=== PATIENT | female | born 1985 | race Caucasian/White ===

== ENCOUNTER 2018-03-16 01:07 | Emergency (ER) | payer OTHER ==
[2018-03-16 01:16] VITALS: BMI 25.9
[2018-03-16 01:43] VITALS: BP 107/61; PULSE 78; TEMP 98.8
--- NOTE | 2018-03-16 02:27 | PDOC ---
History of Present Illness - General Chief Complaint: Pain, Acute Stated Complaint: PAIN/NUMBNESS, LT ARM/RASH Time Seen by Provider: 03/16/18 02:13 History Source: Patient - History of Present Illness Initial Comments: 03/16/18 04:09 32 year old female with a PMH of Sickle Cell Disease presents to our ED c/o 1 day h/o L sided chest and shoulder pain that radiates down her right arm. Patient states the pain is constant, throbbing and similar to her previous sickle cell pain. Endorses some associated shortness of breath but no cough. Denies fever/chills, lightheadedness, palpitations. Notes she can't find her Percocet which she normally takes PRN for sickle cell pain. States her last epside of sickle cell pain was more than 6 months previous. Patient additionally c/o B/L hand rash and rash on her R foot. Notes she recently used a new set of cooking gloves.Notes associated puritus and some discharge from one area of R hand rash. NKDA Surgical: cholecystectomy, appendicitis, unilateral ovarian removal Social: denies toxic habits PMD: Dr. Rakesh Reddy Cable Supervisor: Prakash As per EMR, patient was last evaluated and hospitalized at our institution in 2014 for asthma exacerbation and hypoxia. Past History - Past Medical History Allergies/Adverse Reactions: Allergies Allergy/AdvReac Type Severity Reaction Status Date / Time No Known Allergies Allergy Verified 03/16/18 01:14 Home Medications: Ambulatory Orders Albuterol 0.083% Nebulizer Kourtney [Ventolin 0.083% Nebulizer Soln -] 1 neb NEB Q4H 12/01/14 Mirtazapine [Remeron -] 15 mg PO DAILY 12/01/14 Albuterol Sulfate Inhaler - [Ventolin HFA Inhaler -] 2 inh PO Q4H PRN #1 inh Guaifenesin [Robitussin -] 10 ml PO Q6H PRN #1 bottle 12/05/14 predniSONE [Deltasone -] 20 mg PO DAILY #5 tablet 12/05/14 Amox-Tr/K Cl [Augmentin - 875Mg Tablet] 1 tab PO BID #6 tablet 03/16/18 Asthma: Yes COPD: No Psychiatric Problems: Yes (depression) Other medical history: sickle cell - Surgical History Appendectomy: Yes Cholecystectomy: Yes - Suicide/Smoking/Psychosocial Hx Smoking History: Current every day smoker Have you smoked in the past 12 months: Yes Number of Cigarettes Smoked Daily: 8 Information on smoking cessation initiated: No 'Breaking Loose' booklet given: 12/02/14 Hx Alcohol Use: No Drug/Substance Use Hx: No Substance Use Type: None Hx Substance Use Treatment: No Review of Systems - Review of Systems Constitutional: No: Chills, Fever Respiratory: Yes: Shortness of Breath. No: Cough Cardiac (ROS): Yes: Chest Pain. No: Lightheadedness, Palpitations, Syncope ABD/GI: No: Constipated, Diarrhea, Nausea, Vomiting *Physical Exam - Vital Signs Last Vital Signs Temp Pulse Resp BP Pulse Ox 98.8 F 78 18 107/61 98 03/16/18 01:42 03/16/18 01:42 03/16/18 01:42 03/16/18 01:42 03/16/18 01:42 - Physical Exam General Appearance: Yes: Nourished, Appropriately Dressed Neck: positive: Trachea midline, Supple Respiratory/Chest: positive: Lungs Clear Cardiovascular: positive: S1, S2, Murmur Gastrointestinal/Abdominal: positive: Soft. negative: Distended, Guarding, Rebound, Tenderness Extremity: positive: Normal Capillary Refill, Other (B/L hand rash, rash on R pedal surface with pinpoint excoriations. NVI, mild edema. ) Integumentary: positive: Normal Color, Dry, Warm Neurologic: positive: Fully Oriented, Alert ED Treatment Course - LABORATORY CBC & Chemistry Diagram: 03/16/18 02:44 03/16/18 02:44 Medical Decision Making - Medical Decision Making 03/16/18 04:12 32 year old female with chest and arm pain. Afebrile, SpO2 96-98% on room air. Notes she cannot locate her pain medication. Frontal diagnosis: SCD crisis, PNA, muskoskeletal pain, acute chest syndrome (less likely no fever, no hypoxia) . Will obtain CXR, basic labs, Troponin, ECG. Pain control with Percocet. Will check ISTOP for opioid medications. Blood cultures + Wound culture of hand rash - possible insect bite vs. allergic reaction w/infection 2/2 to skin breakage 2/2 to puritus. 03/16/18 06:31 WBC 22, with neutrophilic predominance consistent with SCD. Troponin (-). Symptomatically improved with Percocet. CXR shows L sided infiltrate (no on prior XR). Will presumptively treat for pneumonia and discharge home with strict return precautions. Patient given referral to dermatology for evaluation of rash. I discussed the physical exam findings, ancillary test results and final diagnoses with the patient. I answered all of the patient's questions. The patient was satisfied with the care received and felt comfortable with the discharge plan and treatment plan. The patient will return to the Emergency Department with any new, persistent or worsening symptoms. *DC/Admit/Observation/Transfer Diagnosis at time of Disposition: Pneumonia - Discharge Dispostion Disposition: HOME Condition at time of disposition: Good Decision to Admit order: No - Prescriptions Prescriptions: Amox-Tr/K Cl [Augmentin - 875Mg Tablet] 1 tab PO BID #6 tablet - Referrals Referrals: Rakesh Reddy MD [Primary Care Provider] - Sienna Castellano [Staff Physician] - - Patient Instructions Additional Instructions: An antibiotic has been called to your pharmacy, please complete the entire antibiotic course. Follow up with Dr. Reddy in the next 2-3 days. A referral to a pyroglazer has been provided to you. Please make an appointment for evaluation of your rash. You can call the hospital at the number provided in 72 hours for results of the wound culture taken from your hand. Return to the Emergency Department for worsening pain, shortness of breath, or any new/worsening/concerning symptoms. - Post Discharge Activity
--- NOTE | 2018-03-16 02:39 | PDOC ---
Attending Attestation - HPI HPI: 03/16/18 03:02 The patient is a 32 year old female, with a significant past medical history of asthma and sickle cell disease, who presents to the emergency department with, left shoulder pain radiating down the left arm. She reports her pain to be similar to her baseline pain exacerbated to her left arm. She reports an associated rash on her bilateral arms and right foot for the past 2 days. She reports using new gloves when cooking just prior to the onset of her symptoms. Allergies: NKA - Physicial Exam PE: 03/16/18 03:02 GENERAL: Well-appearing, well-nourished. No apparent distress. HEENT: Normocephalic, atraumatic. PERRL, EOM intact. CARDIOVASCULAR: Normal S1, S2. Regular rate and rhythm. PULMONARY: Clear to auscultation bilaterally. ABDOMEN: Soft, non-distended, non-tender. EXTREMITIES: Normal ROM in all four extremities. No gross deformities. +SKIN: Skin breakdown to the palmar aspect of the bilateral hands on and close to the digits. Similar rash to the dorsum of the right foot. NEUROLOGICAL: No focal neurological deficits. <Christi Dewitt - Last Filed: 03/16/18 03:02> - Resident Resident Name: Rosario Madison - ED Attending Attestation I have performed the following: I have examined & evaluated the patient, The case was reviewed & discussed with the resident, I agree w/resident's findings & plan, Exceptions are as noted - Medical Decision Making 03/16/18 19:29 patient was treated and released <Joe Haynes - Last Filed: 03/16/18 19:30> Attestations - Attestations 03/16/18 03:04 Documentation prepared by Christi Dewitt, acting as medical device sales consultant for Joe Haynes DO. <Christi Dewitt - Last Filed: 03/16/18 03:02>
[2018-03-16 04:16] LABS: BASO % 0.8 % (0-2.0); EOS % 6.3 % (0-4.5); HEMATOCRIT 35.8 % (32.4-45.2); HEMOGLOBIN 12.3 GM/dL (10.7-15.3); MCH 27.3 pg (25.7-33.7); MCHC 34.5 g/dl (32.0-36.0); MEAN CELL VOLUME 79.2 fl (80-96); MEAN PLT VOLUME 7.4 fl (7.5-11.1); MONO % 6.6 % (3.8-10.2); NEUT % 59.3 % (42.8-82.8); PLATELET COUNT 573 K/MM3 (134-434); RBC 4.52 M/mm3 (3.60-5.2); RDW 14.5 % (11.6-15.6)
[2018-03-16 04:26] LABS: ALBUMIN 3.9 g/dl (3.4-5.0); ALK PHOS 81 U/L (45-117); ANION GAP 11 (8-16); BILIRUBIN,TOTAL 0.7 mg/dL (0.2-1.0); BLOOD UREA NITROGEN 12 mg/dL (7-18); CALCIUM 8.4 mg/dL (8.5-10.1); CHLORIDE 108 mmol/L (98-107); CO2 24 mmol/L (21-32); CREATININE 0.5 mg/dL (0.55-1.02); GLUCOSE,RANDOM 98 mg/dL (74-106); SGPT/ALT 26 U/L (12-78); SODIUM 143 mmol/L (136-145); TOT PROT 7.1 g/dl (6.4-8.2)
[2018-03-16 04:34] LABS: POTASSIUM 4.1 mmol/L (3.5-5.1); SGOT/AST 33 U/L (15-37)
[2018-03-16 06:24] LABS: ANISOCYTOSIS 1+; PLATELET ESTIMATE INCREASED
[2018-03-16] MEDS ORDERED: morphine CARPU-JECT 2 MG/1 ML DISP.SYRIN IVPUSH ONE (06:28)
[2018-03-16] MEDS ORDERED: AMOX TR/POT CLAV 500MG/125MG TABLETS (FP) PO ONE (06:30)
[2018-03-16] MEDS ORDERED: AMOX TR/POT CLAV 875MG/125MG TABLETS (FP) PO STA (06:31)
[2018-03-16] MEDS ORDERED: AMOX TR/POT CLAV 875MG/125MG TABLETS (FP) ONE (06:56)
--- NOTE | 2018-03-16 15:35 | EKG ---
Test Reason : Blood Pressure : / mmHG Vent. Rate : 082 BPM Atrial Rate : 082 BPM P-R Int : 130 ms QRS Dur : 100 ms QT Int : 410 ms P-R-T Axes : 057 057 012 degrees QTc Int : 479 ms NORMAL SINUS RHYTHM INCOMPLETE RIGHT BUNDLE BRANCH BLOCK BORDERLINE ECG WHEN COMPARED WITH ECG OF 03-DEC-2014 11:52, T WAVE INVERSION NO LONGER EVIDENT IN ANTERIOR LEADS Confirmed by JASEN SÁNCHEZ, WYATT ([id number]) on 03/16/2018 3:35:33 PM Referred By: Confirmed By:WYATT AGGARWAL MD
== END 2018-03-16 06:59 | disposition home or self-care (01) ==
LOC: JER 01:07
DX: J18.9 Pneumonia, unspecified organism (principal); F17.210 Nicotine dependence, cigarettes, uncomplicated; J45.909 Unspecified asthma, uncomplicated; F32.9 Major depressive disorder, single episode, unspecified; D57.1 Sickle-cell disease without crisis
CPT/HCPCS: 36415; 71045-TC-FY; 80053; 82550; 84484; 84703; 85025; 87040; 87070; 87186; 87205; 93005; 93010; 99283-25

== ENCOUNTER 2018-03-16 19:49 | Inpatient (IN) | payer OTHER ==
--- NOTE | 2018-03-16 20:18 | PDOC ---
Rapid Medical Evaluation Time Seen by Provider: 03/16/18 20:16 Medical Evaluation: Allergies Allergy/AdvReac Type Severity Reaction Status Date / Time No Known Allergies Allergy Verified 03/16/18 01:14 I have performed a brief in-person evaluation of this patient. The patient presents with a chief complaint of: left arm pain. was discharged this morning with dx of PNA. she has sickle cell. She was told to come back if pain doesn't get better. Pain has not improved. Pertinent physical exam findings: none I have ordered the following: nothing The patient will proceed to the ED for further evaluation. Discharge Disposition - Diagnosis Pneumonia, community acquired, Sickle cell anemia, Left arm pain - Referrals - Patient Instructions - Post Discharge Activity
[2018-03-16 20:21] VITALS: BMI 25.9
--- NOTE | 2018-03-16 20:51 | PDOC ---
History of Present Illness - General Chief Complaint: Pain Stated Complaint: PAIN Time Seen by Provider: 03/16/18 20:16 - History of Present Illness Initial Comments: 03/16/18 22:25 32f with pmh of sickle cell disease, diagnosed with LLB pna last night s/p augmentin day 1 presents today for persistent pain in the upper left extremity radiating down the hand. Pain started yesterday morning 04/17, sharp constant shooting pain, percocet didn not relieve the pain. "feels weak, warm, swollen" Some chills this morning and and one episode of vomiting this morning. Endorses headache, denies fever,, joint pain,. States the rash on her hand started 2 weeks ago, thought that it was due to her eczema. Past History - Past Medical History Allergies/Adverse Reactions: Allergies Allergy/AdvReac Type Severity Reaction Status Date / Time No Known Allergies Allergy Verified 03/16/18 01:14 Home Medications: Ambulatory Orders Albuterol 0.083% Nebulizer Kourtney [Ventolin 0.083% Nebulizer Soln -] 1 neb NEB Q4H 12/01/14 Mirtazapine [Remeron -] 15 mg PO DAILY 12/01/14 Albuterol Sulfate Inhaler - [Ventolin HFA Inhaler -] 2 inh PO Q4H PRN #1 inh Guaifenesin [Robitussin -] 10 ml PO Q6H PRN #1 bottle 12/05/14 predniSONE [Deltasone -] 20 mg PO DAILY #5 tablet 12/05/14 Amox-Tr/K Cl [Augmentin - 875Mg Tablet] 1 tab PO BID #6 tablet 03/16/18 Anemia: Yes (sickle cell) Asthma: Yes COPD: No Psychiatric Problems: Yes (depression) Thyroid Disease: Yes Other medical history: sleep apnea - Surgical History Appendectomy: Yes Cholecystectomy: Yes - Immunization History Immunization Up to Date: Yes - Suicide/Smoking/Psychosocial Hx Smoking History: Current every day smoker Have you smoked in the past 12 months: Yes Number of Cigarettes Smoked Daily: 8 Information on smoking cessation initiated: No 'Breaking Loose' booklet given: 12/02/14 Hx Alcohol Use: Yes Drug/Substance Use Hx: No Substance Use Type: None Hx Substance Use Treatment: No Review of Systems - Review of Systems Able to Perform ROS?: Yes Is the patient limited Gabonese proficient: No Constitutional: Yes: Chills HEENTM: No: Symptoms Reported Respiratory: Yes: See HPI, Productive cough Cardiac (ROS): No: Symptoms Reported ABD/GI: No: Symptoms Reported : No: Symptoms Reported Musculoskeletal: Yes: See HPI Integumentary: Yes: See HPI All Other Systems: Reviewed and Negative *Physical Exam - Vital Signs Last Vital Signs Temp Pulse Resp BP Pulse Ox 98.6 F 76 16 145/84 100 03/16/18 20:18 03/16/18 20:18 03/16/18 20:18 03/16/18 20:18 03/16/18 20:18 - Physical Exam General Appearance: Yes: Nourished, Appropriately Dressed, Mild Distress HEENT: positive: EOMI, EPHRAIM, Normal ENT Inspection Respiratory/Chest: positive: Lungs Clear, Normal Breath Sounds. negative: Chest Tender, Respiratory Distress Cardiovascular: positive: Regular Rhythm, Regular Rate, S1, S2 Gastrointestinal/Abdominal: positive: Normal Bowel Sounds, Flat, Soft. negative : Tender Musculoskeletal: positive: Normal Inspection. negative: CVA Tenderness Extremity: positive: Other (Dry scaly rash over b/l hand, pus coming out of left palm, has a scar over left forarm from previous suicide attempt, ribbon- like 2cm longitudinal band over ventral aspect of forearm up to antecubital fossa. ULE more swollen than URE. Eczema over left arm. Normal rom. ) Integumentary: positive: Erythema, Rash. negative: Cyanotic Neurologic: positive: Fully Oriented, Alert, Normal Mood/Affect, Normal Response , Motor Strength 5/5 ED Treatment Course - LABORATORY CBC & Chemistry Diagram: 03/16/18 22:10 03/16/18 22:10 Medical Decision Making - Medical Decision Making 03/16/18 22:33 Lymphangitis vs Venous thromboembolism vs infection Will draw blood, cultures Arterial and venous duplex of upper left extremity as well as CT scan with contrast. Spoke to Dr. Esposito who will follow the patient, started on [id number]-zosyn 03/17/18 00:57 CT arm positive for collection of swollen lymph nodes along arm sugggesting diagnosis of Lymphangitis. 03/17/18 01:31 Admit to hospitalist. *DC/Admit/Observation/Transfer Diagnosis at time of Disposition: Pneumonia, community acquired, Sickle cell anemia, Lymphangitis - Discharge Dispostion Condition at time of disposition: Improved Decision to Admit order: Yes - Referrals Referrals: Ashley Reddy MD [Primary Care Provider] - - Patient Instructions - Post Discharge Activity
--- NOTE | 2018-03-16 21:23 | PDOC ---
Attending Attestation - [facility] HPI: 03/16/18 22:28 The patient is a 32 year old female with a significant PMH of sickle cell disease, asthma, depression, appendectomy, and cholecystectomy who presents to the emergency department with left arm pain. The patient was seen in the ED earlier today for similar complain secondary to rash on arms and right foot. The patient reports that since being seen earlier today her pain and rash has gotten progressively worse and is a 9/10 in severity. The patient denies any recent travel or sick contact. The patient denies any other symptoms. She denies any fever, chills, nausea, vomit, diarrhea, constipation or urinary symptoms. She denies chest pain, shortness of breath, headache and dizziness. The patient denies any other complaints. PCP: Dr. Reddy - Physicial Exam PE: 03/16/18 22:29 GENERAL: Well developed, well nourished. Awake and alert. No acute distress. HEENT: Normocephalic, atraumatic. PERRLA, EOMI. No conjunctival pallor. Sclera are non- icteric. Moist mucous membranes. Oropharynx is clear. NECK: Supple. Full ROM. No JVD. Carotid pulses 2+ and symmetric, without bruits. No thyromegaly. No lymphadenopathy. CARDIOVASCULAR: Regular rate and rhythm. No murmurs, rubs, or gallops. Distal pulses are 2+ and symmetric. PULMONARY: No evidence of respiratory distress. Lungs clear to auscultation bilaterally. No wheezing, rales or rhonchi. ABDOMINAL: Soft. Non-tender. Non-distended. No rebound or guarding. No organomegaly. Normoactive bowel sounds. MUSCULOSKELETAL Normal range of motion at all joints. No bony deformities or tenderness. No CVA tenderness. EXTREMITIES: (+)lower extremity more pronounced erythema and swelling with diffuse tenderness of left arm from antecubital fossa to wrist. Skin breakdown to the palmar aspect of the bilateral hands on and close to the digits. Similar rash to the dorsum of the right foot. No cyanosis. No clubbing. No edema. No calf tenderness. SKIN: Warm and dry. Normal capillary refill. No rashes. No jaundice. NEUROLOGICAL: Alert, awake, appropriate. Cranial nerves 2-12 intact. No deficits to light touch and temperature in face, upper extremities and lower extremities. No motor deficits in the in face, upper extremities and lower extremities. Normoreflexic in the upper and lower extremities. Normal speech. Toes are down- going bilaterally. Gait is normal without ataxia. PSYCHIATRIC: Cooperative. Good eye contact. Appropriate mood and affect. Documentation prepared by Ashley Johns, acting as biomedical specialist for Joe Haynes DO. <Ashley Johns - Last Filed: 03/16/18 22:28> - Resident Resident Name: Girma Bryson - ED Attending Attestation I have performed the following: I have examined & evaluated the patient, The case was reviewed & discussed with the resident, I agree w/resident's findings & plan, Exceptions are as noted - Medical Decision Making 03/20/18 19:23 pt was admitted for further evaluation and care <Joe Haynes - Last Filed: 03/20/18 19:24>
[2018-03-16] MEDS ORDERED: morphine CARPU-JECT 4 MG/1 ML DISP.SYRIN IVPUSH ONE (22:10)
[2018-03-16 22:14] LABS: URINE APPEARANCE CLEAR; URINE BILIRUBIN NEGATIVE (<2.0 mg/dL); URINE COLOR LTYELLOW; URINE GLUCOSE (UA) NEGATIVE (NEGATIVE); URINE KETONE NEGATIVE (NEGATIVE); URINE NITRITE NEGATIVE (NEGATIVE); URINE PROTEIN NEGATIVE (NEGATIVE); URINE UROBILINOGEN NEGATIVE mg/dL (0.2-1.0)
[2018-03-16 22:16] LABS: URINE LEUK ESTERASE 1+ (NEGATIVE)
[2018-03-16 22:20] LABS: EPI CELLS RARE /HPF (FEW)
[2018-03-16 22:30] LABS: BASO % 1.1 % (0-2.0); EOS % 3.5 % (0-4.5); HEMATOCRIT 36.3 % (32.4-45.2); HEMOGLOBIN 12.8 GM/dL (10.7-15.3); LYMPH % 31.3 % (8-40); MCH 27.4 pg (25.7-33.7); MCHC 35.2 g/dl (32.0-36.0); MEAN CELL VOLUME 77.9 fl (80-96); MONO % 6.9 % (3.8-10.2); NEUT % 57.2 % (42.8-82.8); PLATELET COUNT 598 K/MM3 (134-434); RBC 4.66 M/mm3 (3.60-5.2); RDW 14.8 % (11.6-15.6); WHITE BLOOD COUNT 18.9 K/mm3 (4.0-10.0)
[2018-03-16 22:44] LABS: INR 1.07 (0.83-1.09); PROTHROMBIN TIME (PATIENT) 12.1 SEC (9.7-13.0)
[2018-03-16 22:46] LABS: ACTIVATED PTT 29.3 SECONDS (25.2-36.5)
[2018-03-16 22:53] LABS: ALBUMIN 4.4 g/dl (3.4-5.0); ANION GAP 9 (8-16); BILIRUBIN,TOTAL 0.6 mg/dL (0.2-1.0); BLOOD UREA NITROGEN 7 mg/dL (7-18); CALCIUM 8.7 mg/dL (8.5-10.1); CHLORIDE 108 mmol/L (98-107); CO2 26 mmol/L (21-32); CREATININE 0.5 mg/dL (0.55-1.02); GLUCOSE,RANDOM 99 mg/dL (74-106); SGOT/AST 21 U/L (15-37); SGPT/ALT 26 U/L (12-78); SODIUM 143 mmol/L (136-145); TOT PROT 7.4 g/dl (6.4-8.2)
[2018-03-16 22:54] LABS: ALK PHOS 80 U/L (45-117)
[2018-03-16] MEDS ORDERED: PIPERACILLIN/TAZOB 3.375 GM 3.375 GM in DEXTROSE 5%-WATER - 50 ML IVPB ONE (23:05)
[2018-03-16] MEDS ORDERED: VANCOMYCIN 1,000 MG in DEXTROSE 5%-WATER - 250 ML IVPB ONE (23:05)
[2018-03-16] MEDS ORDERED: morphine SULFATE 4 MG/ML VIAL ONE (23:07)
[2018-03-16 23:42] LABS: ANISOCYTOSIS 1+; MACROCYTOSIS 1+; OVALOCYTE 1+; PLATELET ESTIMATE INCREASED
[2018-03-17] MEDS ORDERED: PIPERACILLIN/TAZOB 3.375 GM 3.375 GM/50 ML BAG IVPB ONE (00:40)
[2018-03-17] MEDS ORDERED: ALBUTEROL SO4 8 GM HFA INHALER IH PRN (01:05)
[2018-03-17] MEDS ORDERED: VANCOMYCIN 1,000 MG in DEXTROSE 5%-WATER - 250 ML IVPB SCH ×2 (01:15→13:00)
[2018-03-17] MEDS ORDERED: VANCOMYCIN 1 GRAM (PRE-DOCKED) 1,000 MG/250 ML BAG IVPB ONE (01:41)
[2018-03-17] MEDS: HEPARIN NA (PORCINE) 5,000 UNITS/ML 1ML VIAL SQ SCH ×3 (02:10→17:33)
--- NOTE | 2018-03-17 02:20 | HP ---
CHIEF COMPLAINT: L arm pain HISTORY OF PRESENT ILLNESS: 32 year old female with a hx of sickle cell disease, asthma, depression, BOLA, and diagnosed with LLB PNA yesterday presents for 1 day hx of L arm pain. She reports that the pain is 9/10 in severity and shooting down her arm both anteriorly and posteriorly in her left hand. She says that she has a lesion on the palm of her hand that drained purulent fluid earlier today and caused her pain. Reports that her arm hurts when she moves it. She says she has been recently having mild chest discomfort and L arm pain about once a month for 5-6 months that last up to 4 days at a time and resolve spontaneously. She states that she has had an eczematous-like rash on her hands and R foot for about 2 weeks. Denies any fevers, chills, chest pain, SOB, nausea, vomiting, diarrhea, abdominal pain. She was seen in the hospital yesterday and was diagnosed with PNA, given augmentin (took 2 doses). ER course was notable for: (1) WBC 18.9 (2) CT L arm + for lymphadenopathy medial to L elbow (3) Recent Travel: denies PAST MEDICAL HISTORY: sickle cell disease, asthma, depression, BOLA PAST SURGICAL HISTORY: appendectomy, cholecystectomy, splenectomy, R oophorectomy, ovarian cystectomy Social History: Smoking: current everyday smoker of 8 cigs/12 years Alcohol: denies Drugs: denies Family History: mother: Multiple Sclerosis, breast CA; father: none Allergies No Known Allergies Allergy (Verified 03/16/18 01:14) HOME MEDICATIONS: Home Medications Medication Instructions Recorded Albuterol 0.083% Nebulizer Kourtney 1 neb NEB Q4H 12/01/14 [Ventolin 0.083% Nebulizer Soln -] Mirtazapine [Remeron -] 15 mg PO DAILY 12/01/14 Albuterol Sulfate Inhaler - 2 inh PO Q4H PRN #1 inh 12/05/14 [Ventolin HFA Inhaler -] Guaifenesin [Robitussin -] 10 ml PO Q6H PRN #1 bottle 12/05/14 predniSONE [Deltasone -] 20 mg PO DAILY #5 tablet 12/05/14 Amox-Tr/K Cl [Augmentin - 875Mg 1 tab PO BID #6 tablet 03/16/18 Tablet] REVIEW OF SYSTEMS CONSTITUTIONAL: Absent: fever, chills, diaphoresis, generalized weakness, malaise, loss of appetite, weight change HEENT: Absent: rhinorrhea, nasal congestion, throat pain, throat swelling, difficulty swallowing, mouth swelling, ear pain, eye pain, visual changes CARDIOVASCULAR: Absent: chest pain, syncope, palpitations, irregular heart rate, lightheadedness , peripheral edema RESPIRATORY: Absent: cough, shortness of breath, dyspnea with exertion, orthopnea, wheezing, stridor, hemoptysis GASTROINTESTINAL: Absent: abdominal pain, abdominal distension, nausea, vomiting, diarrhea, constipation, melena, hematochezia GENITOURINARY: Absent: dysuria, frequency, urgency, hesitancy, hematuria, flank pain, genital pain MUSCULOSKELETAL: Absent: myalgia, arthralgia, joint swelling, back pain, neck pain SKIN: rash, itching Absent: pallor HEMATOLOGIC/IMMUNOLOGIC: Absent: easy bleeding, easy bruising, lymphadenopathy, frequent infections ENDOCRINE: Absent: unexplained weight gain, unexplained weight loss, heat intolerance, cold intolerance NEUROLOGIC: Absent: headache, focal weakness or paresthesias, dizziness, unsteady gait, seizure, mental status changes, bladder or bowel incontinence PSYCHIATRIC: Absent: anxiety, depression, suicidal or homicidal ideation, hallucinations. PHYSICAL EXAMINATION Vital Signs - 24 hr 03/16/18 20:18 Temperature 98.6 F Pulse Rate 76 Respiratory 16 Rate Blood Pressure 145/84 O2 Sat by Pulse 100 Oximetry (%) GENERAL: A&Ox3, no acute distress EYES: PERRLA, EOMI ENT: Moist mucus membranes NECK: No JVD LUNGS: CTA, no wheezing noted on exam HEART: RRR, no murmurs ABDOMEN: Soft, nontender, BS present MUSCULOSKELETAL: No CVA Tenderness EXTREMITIES: 2+ pulses, no edema. b/l hands and R foot have small eczematous excoriations on palmar surfaces and fingers. L hand has several lesions on palmar surface with 1 yellow, pus-filled lesion. L forearm has a red-tracking lesion on anterior surface that ends at approximately the antecubital fossa. NEUROLOGICAL: Cranial nerves II-XII intact. Laboratory Results - last 24 hr 03/16/18 03/16/18 03/16/18 21:58 22:10 22:10 WBC 18.9 H RBC 4.66 Hgb 12.8 Hct 36.3 MCV 77.9 L MCH 27.4 MCHC 35.2 RDW 14.8 Plt Count 598 H MPV 7.0 L Absolute Neuts (auto) 10.8 Total Counted 100 Neutrophils % 57.2 Neutrophils % (Manual) 62.0 Lymphocytes % 31.3 Lymphocytes % (Manual) 28.0 D Monocytes % 6.9 Monocytes % (Manual) 8 Eosinophils % 3.5 Eosinophils % (Manual) 2.0 Basophils % 1.1 Nucleated RBC % 1 H Hypochromia 1+ Platelet Estimate Increased Platelet Comment No clumping noted Polychromasia 1+ Anisocytosis 1+ Macrocytosis 1+ Ovalocytes 1+ PT with INR 12.10 INR 1.07 PTT (Actin FS) 29.3 Sodium Potassium Chloride Carbon Dioxide Anion Gap BUN Creatinine Creat Clearance w eGFR Random Glucose Calcium Total Bilirubin AST ALT Alkaline Phosphatase Total Protein Albumin Urine Color Ltyellow Urine Appearance Clear Urine pH 6.0 Ur Specific [place] 1.010 Urine Protein Negative Urine Glucose (UA) Negative Urine Ketones Negative Urine Blood Negative Urine Nitrite Negative Urine Bilirubin Negative Urine Urobilinogen Negative Ur Leukocyte Esterase 1+ H Urine WBC (Auto) 1 Urine RBC (Auto) <1 Ur Epithelial Cells Rare Blood Type Antibody Screen 03/16/18 03/16/18 22:10 22:10 WBC RBC Hgb Hct MCV MCH MCHC RDW Plt Count MPV Absolute Neuts (auto) Total Counted Neutrophils % Neutrophils % (Manual) Lymphocytes % Lymphocytes % (Manual) Monocytes % Monocytes % (Manual) Eosinophils % Eosinophils % (Manual) Basophils % Nucleated RBC % Hypochromia Platelet Estimate Platelet Comment Polychromasia Anisocytosis Macrocytosis Ovalocytes PT with INR INR PTT (Actin FS) Sodium 143 Potassium 4.0 Chloride 108 H Carbon Dioxide 26 Anion Gap 9 BUN 7 Creatinine 0.5 L Creat Clearance w eGFR > 60 Random Glucose 99 Calcium 8.7 Total Bilirubin 0.6 AST 21 ALT 26 Alkaline Phosphatase 80 Total Protein 7.4 Albumin 4.4 Urine Color Urine Appearance Urine pH Ur Specific [place] Urine Protein Urine Glucose (UA) Urine Ketones Urine Blood Urine Nitrite Urine Bilirubin Urine Urobilinogen Ur Leukocyte Esterase Urine WBC (Auto) Urine RBC (Auto) Ur Epithelial Cells Blood Type O POSITIVE Antibody Screen Positive H ASSESSMENT/PLAN: 32 year old female with a hx of sickle cell disease, asthma, depression, BOLA presented for L arm pain and found to have lymphangitis of L forearm and hand #Lymphangitis of Left Arm: patient has a draining lesion on the palm of her L hand and erythematous track milton on anterior forearm -ID consulted -wound culture -blood culture -CT L arm shows enlarged lymph nodes around the medial aspect of elbow -vancomycin 1000 BID -zosyn 3.375 Q6h -IVF hydration w/ NS @ 100cc/hr -RPR ordered #Asthma: chronic, may have mild symptomatic presentation -albuterol 1-2 puffs as needed #Depression: patient states that she is on wellbutrin and effexor, unknown dose -will confirm with pharmacy and restart #Sickle Cell Disease: chronic -not on maintenance medications #FEN IV NS @ 100cc/hr lytes wnl regular diet #Prophylaxis -heparin 5000 subq tid #Disposition -admit med surg Visit type - Emergency Visit Emergency Visit: Yes ED Registration Date: 03/17/18 Care time: The patient presented to the Emergency Department on the above date and was hospitalized for further evaluation of their emergent condition. - New Patient This patient is new to me today: Yes Date on this admission: 03/17/18 - Critical Care Critical Care patient: No Hospitalist Screening - Colonoscopy Questionnaire Colonoscopy Questionnaire: Colonoscopy Questionnaire - Patient: 50 - 75 years old and never had a screening colonoscopy: Unknown History of colon or rectal polyps, or CA: Unknown History of IBD, Crohn's disease or UC: Unknown History of abdominal radiation therapy as a child: Unknown - Relative: 1 with colon or rectal CA, or polyps at age 60 or younger: Unknown Colon or rectal CA diagnosed at age 45 or younger: Unknown Multiple relatives with colon or rectal CA: Unknown - Outcome: Screening Result: Negative Screen
[2018-03-17] MEDS: SODIUM CHLORIDE 1,000 ML IV SCH ×2 (02:43→05:07)
[2018-03-17] MEDS ORDERED: HEPARIN NA (PORCINE) 5,000 UNITS/ML 1ML VIAL ONE (02:55)
[2018-03-17] MEDS ORDERED: PIPERACILLIN/TAZOB 3.375 GM 3.375 GM in DEXTROSE 5%-WATER - 50 ML IVPB SCH (03:00)
[2018-03-17] MEDS ORDERED: MORPHINE SULFATE 2 MG/ML VIAL IVPUSH ONE (04:45)
--- NOTE | 2018-03-17 05:30 | PN ---
Teaching Attending Note Name of Resident: Vincent Hicks ATTENDING PHYSICIAN STATEMENT I saw and evaluated the patient. Chart, data, imaging reviewed. I reviewed the resident's note and discussed the case with the resident. I agree with the resident's findings and plan as documented. SUBJECTIVE: 32 year old female with a hx of sickle cell disease, asthma, depression, BOLA, and diagnosed with left upper extremity pain x2 days. She reports scratching her left hand and forearm due to severe itching from her eczema. Has pet cat at home. Was seen in ER one day ago and given augmentin for presumed pneumonia. No resp symptoms currently. OBJECTIVE: Last Vital Signs Temp Pulse Resp BP Pulse Ox 98.1 F 82 18 127/72 100 03/17/18 02:23 03/17/18 02:23 03/17/18 02:23 03/17/18 02:23 03/16/18 20:18 general- nad, nontoxic appearing heent -at ,nc neck supple cv -s1+S2+rrr chest cta b/l abdomen soft , bs+ skin - b/l forearm rashes c/w eczema, left forearm warm to touch with pustule seen on palm of left hand Abnormal Lab Results 03/16/18 03/16/18 03/16/18 21:58 22:10 22:10 WBC 18.9 H MCV 77.9 L Plt Count 598 H MPV 7.0 L Nucleated RBC % 1 H Chloride 108 H Creatinine 0.5 L Ur Leukocyte Esterase 1+ H Antibody Screen 03/16/18 22:10 WBC MCV Plt Count MPV Nucleated RBC % Chloride Creatinine Ur Leukocyte Esterase Antibody Screen Positive H CT of left upper ext reviewed- enlarged LN at left elbow site. No abscess seen. ASSESSMENT AND PLAN: 32yo woman with SCD, immunocompromised s/p splenectomy with cellulitis of left hand and forearm with lymphadenopathy around left elbow. Likely induced by scratching skin due to pruritus from eczema. -admit to med/surg -blood cultures x2 -zosyn 3.375g iv q6hrs -vancomycin 1g IV q12hrs -IV fluid hydration -ID consult -counseled patient to avoid excessive scratching -restart home meds -heparin sc for dvt ppx, see resident not for details
[2018-03-17 07:28] LABS: HEMATOCRIT 30.7 % (32.4-45.2); MCHC 35.8 g/dl (32.0-36.0); MEAN CELL VOLUME 78.3 fl (80-96); MEAN PLT VOLUME 6.8 fl (7.5-11.1); PLATELET COUNT 502 K/MM3 (134-434); RBC 3.92 M/mm3 (3.60-5.2); RDW 14.8 % (11.6-15.6); WHITE BLOOD COUNT 15.4 K/mm3 (4.0-10.0)
[2018-03-17 08:17] LABS: CHLORIDE 110 mmol/L (98-107); POTASSIUM 3.9 mmol/L (3.5-5.1); SODIUM 143 mmol/L (136-145)
[2018-03-17 08:29] LABS: ANION GAP 9 (8-16); BLOOD UREA NITROGEN 7 mg/dL (7-18); CALCIUM 7.8 mg/dL (8.5-10.1); CO2 24 mmol/L (21-32); CREATININE 0.4 mg/dL (0.55-1.02); GLUCOSE,RANDOM 99 mg/dL (74-106)
[2018-03-17] MEDS ORDERED: DEXTROSE 5%-WATER - 50 ML IVPB ONE ×3 (08:41→20:54)
[2018-03-17] MEDS ORDERED: PIPERACILLIN/TAZOBACTAM 3.375 GM VIAL IVPB ONE ×3 (08:41→20:54)
[2018-03-17] MEDS ORDERED: PIPERACILLIN/TAZOB 3.375 GM 3.375 GM in DEXTROSE 5%-WATER - 50 ML IVPB ONE (09:00)
[2018-03-17] MEDS ORDERED: PT OWN MED DRAWER 7, Y5N ONE (09:48)
[2018-03-17] MEDS: IBUPROFEN 400 MG TABLET (FP) PO ONE ×2 (09:51→09:56)
[2018-03-17] MEDS ORDERED: MIRTAZAPINE 15 MG TABLET (FP) PO SCH (10:00)
--- NOTE | 2018-03-17 10:38 | PN ---
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 occurs for several days every other month this is much more severe came to ED 03/16 with pain in right arm and shoulder d/khalif home on augmentin returned with worsening pain, episode of vomiting chills noted to have some erythema streaking from hand to forearm has from of shoulder, no erythema or swelling of the shoulder reports severe pain not controlled by percocet +sexually active pet cat- denies bites or scratches celluliitis of the forearm/hand shoulder/arm pain will review imaging cultures pending vanco/zosyn analgesia history of SS disease excema s/p splenectomy would send gc/chlamydia/rpr offer HIV testing Problem List - Problems (1) Cellulitis Code(s): L03.90 - CELLULITIS, UNSPECIFIED (2) Chronic eczema Code(s): L30.9 - DERMATITIS, UNSPECIFIED (3) Sickle cell anemia Code(s): D57.1 - SICKLE-CELL DISEASE WITHOUT CRISIS (4) H/O splenectomy Code(s): Z90.81 - ACQUIRED ABSENCE OF SPLEEN
[2018-03-17] MEDS ORDERED: traMADol HCL 50 MG TABLET PO PRN (10:44)
[2018-03-17] MEDS: VANCOMYCIN 1 GM PREMIX - 1 GM/200 ML BAG IVPB SCH (12:23)
[2018-03-17] MEDS: GABAPENTIN 300 MG CAPSULE (FP) PO SCH ×2 (14:12→22:10)
[2018-03-17] MEDS: PIPERACILLIN/TAZOB 3.375 GM 3.375 GM in DEXTROSE 5%-WATER - 50 ML IVPB SCH ×2 (14:13→21:50)
--- NOTE | 2018-03-17 17:14 | PN ---
Teaching Attending Note Name of Resident: Ilsa Sen ATTENDING PHYSICIAN STATEMENT I saw and evaluated the patient. I reviewed the resident's note and discussed the case with the resident. I agree with the resident's findings and plan as documented. SUBJECTIVE: Patient complaining of left shoulder and arm pain. OBJECTIVE: Vital Signs Period Temp Pulse Resp BP Sys/[place] Pulse Ox Last 24 Hr 98.1 F-98.6 F 69-82 16-18 110-145/68-84 98-100 HEART: S1S2, RRR LUNGS: Clear ABDOMEN: Soft, non-tender, non-distended, normal BS EXTREMITIES: No edema. Papular and pustular rash on both hands and feet. Left hand is erythematous with streak up left forearm to antecubital space NEUROLOGICAL: LUE strength 5/5, sensation intact. FROM at left shoulder. Tenderness overlying T3 Laboratory Results - last 24 hr 03/16/18 03/16/18 03/16/18 21:58 22:10 22:10 WBC 18.9 H RBC 4.66 Hgb 12.8 Hct 36.3 MCV 77.9 L MCH 27.4 MCHC 35.2 RDW 14.8 Plt Count 598 H MPV 7.0 L Absolute Neuts (auto) 10.8 Total Counted 100 Neutrophils % 57.2 Neutrophils % (Manual) 62.0 Lymphocytes % 31.3 Lymphocytes % (Manual) 28.0 D Monocytes % 6.9 Monocytes % (Manual) 8 Eosinophils % 3.5 Eosinophils % (Manual) 2.0 Basophils % 1.1 Nucleated RBC % 1 H Hypochromia 1+ Platelet Estimate Increased Platelet Comment No clumping noted Polychromasia 1+ Anisocytosis 1+ Macrocytosis 1+ Ovalocytes 1+ PT with INR 12.10 INR 1.07 PTT (Actin FS) 29.3 Sodium Potassium Chloride Carbon Dioxide Anion Gap BUN Creatinine Creat Clearance w eGFR Random Glucose Calcium Total Bilirubin AST ALT Alkaline Phosphatase Total Protein Albumin Urine Color Ltyellow Urine Appearance Clear Urine pH 6.0 Ur Specific [place] 1.010 Urine Protein Negative Urine Glucose (UA) Negative Urine Ketones Negative Urine Blood Negative Urine Nitrite Negative Urine Bilirubin Negative Urine Urobilinogen Negative Ur Leukocyte Esterase 1+ H Urine WBC (Auto) 1 Urine RBC (Auto) <1 Ur Epithelial Cells Rare RPR Titer Blood Type Antibody Screen 03/16/18 03/16/18 03/17/18 22:10 22:10 02:25 WBC RBC Hgb Hct MCV MCH MCHC RDW Plt Count MPV Absolute Neuts (auto) Total Counted Neutrophils % Neutrophils % (Manual) Lymphocytes % Lymphocytes % (Manual) Monocytes % Monocytes % (Manual) Eosinophils % Eosinophils % (Manual) Basophils % Nucleated RBC % Hypochromia Platelet Estimate Platelet Comment Polychromasia Anisocytosis Macrocytosis Ovalocytes PT with INR INR PTT (Actin FS) Sodium 143 Potassium 4.0 Chloride 108 H Carbon Dioxide 26 Anion Gap 9 BUN 7 Creatinine 0.5 L Creat Clearance w eGFR > 60 Random Glucose 99 Calcium 8.7 Total Bilirubin 0.6 AST 21 ALT 26 Alkaline Phosphatase 80 Total Protein 7.4 Albumin 4.4 Urine Color Urine Appearance Urine pH Ur Specific [place] Urine Protein Urine Glucose (UA) Urine Ketones Urine Blood Urine Nitrite Urine Bilirubin Urine Urobilinogen Ur Leukocyte Esterase Urine WBC (Auto) Urine RBC (Auto) Ur Epithelial Cells RPR Titer Blood Type O POSITIVE O POSITIVE Antibody Screen Positive H 03/17/18 03/17/18 03/17/18 07:00 07:00 07:00 WBC 15.4 H RBC 3.92 Hgb 11.0 Hct 30.7 L D MCV 78.3 L MCH 28.0 MCHC 35.8 RDW 14.8 Plt Count 502 H MPV 6.8 L Absolute Neuts (auto) Total Counted Neutrophils % Neutrophils % (Manual) Lymphocytes % Lymphocytes % (Manual) Monocytes % Monocytes % (Manual) Eosinophils % Eosinophils % (Manual) Basophils % Nucleated RBC % Hypochromia Platelet Estimate Platelet Comment Polychromasia Anisocytosis Macrocytosis Ovalocytes PT with INR INR PTT (Actin FS) Sodium 143 Potassium 3.9 Chloride 110 H Carbon Dioxide 24 Anion Gap 9 BUN 7 Creatinine 0.4 L Creat Clearance w eGFR > 60 Random Glucose 99 Calcium 7.8 L Total Bilirubin AST ALT Alkaline Phosphatase Total Protein Albumin Urine Color Urine Appearance Urine pH Ur Specific [place] Urine Protein Urine Glucose (UA) Urine Ketones Urine Blood Urine Nitrite Urine Bilirubin Urine Urobilinogen Ur Leukocyte Esterase Urine WBC (Auto) Urine RBC (Auto) Ur Epithelial Cells RPR Titer Nonreactive Blood Type Antibody Screen Current Medications Generic Name Dose Route Start Last Admin Trade Name Freq PRN Reason Stop Dose Admin Albuterol Sulfate 2 puff 03/17/18 01:05 Ventolin Hfa Inhaler - IH Q4H PRN SHORT OF BREATH/WHEEZING Gabapentin 600 mg 03/17/18 14:00 03/17/18 14:12 Neurontin - PO 600 mg TID KRUPA Administration Heparin Sodium (Porcine) 5,000 unit 03/17/18 02:00 03/17/18 09:52 Heparin - SQ 5,000 unit Q8H-IV KRUPA Administration Piperacillin Sod/Tazobactam 50 mls @ 100 mls/hr 03/17/18 15:00 03/17/18 14:13 Sod 3.375 gm/ Dextrose IVPB 100 mls/hr Q6H-IV KRUPA Administration Protocol Vancomycin HCl 1 gm in 200 mls @ 166.667 mls/hr 03/17/18 13:00 03/17/18 12:23 Vancomycin 1 Gm Premix - IVPB 166.667 mls/hr BID@0100,1300 KRUPA Administration Protocol Tramadol HCl 50 mg 03/17/18 10:44 03/17/18 11:07 Ultram - PO 50 mg Q6H PRN Administration PAIN LEVEL 6-10 ASSESSMENT AND PLAN: This is a 32 year old woman with a history of sickle cell disease, asthma, depression, BOLA who presented to the ED with left arm pain. 1. Left hand/forearm cellulitis - Continue Zosyn, Vancomycin - Wound, blood cultures pending 2. Eczematous dermatitis of hands and feet 3. Left shoulder/arm pain - Has unremarkable exam - Neurontin was started - Venous/arterial dopplers of LUE, MRI of C-spine ordered 4. Asthma - Stable 5. Depression 6. Sickle cell disease - Stable
--- NOTE | 2018-03-17 17:15 | PN ---
Physical Exam: SUBJECTIVE: Patient seen and examined at bedside. Reports pain in L shoulder radiating down L arm to fingertips. Also admits to itchiness on her R foot due to eczematous rash. OBJECTIVE: Vital Signs Period Temp Pulse Resp BP Sys/Manning Pulse Ox Last 24 Hr 98.1 F-98.6 F 69-82 16-18 110-145/68-84 98-100 GENERAL: A&Ox3, no acute distress EYES: PERRLA, EOMI ENT: Moist mucus membranes NECK: No JVD LUNGS: CTA, no wheezing noted on exam HEART: RRR, no murmurs ABDOMEN: Soft, nontender, BS present MUSCULOSKELETAL: No CVA Tenderness. Point tenderness on the back at level of T3 , R of spine. EXTREMITIES: 2+ pulses, no edema. b/l hands and R foot have small eczematous excoriations on palmar surfaces and fingers. L hand has several lesions on palmar surface with 1 yellow, pus-filled lesion. L forearm has a red-tracking lesion on anterior surface that ends at approximately the antecubital fossa. NEUROLOGICAL: Cranial nerves II-XII intact. Laboratory Results - last 24 hr 03/16/18 03/16/18 03/16/18 21:58 22:10 22:10 WBC 18.9 H RBC 4.66 Hgb 12.8 Hct 36.3 MCV 77.9 L MCH 27.4 MCHC 35.2 RDW 14.8 Plt Count 598 H MPV 7.0 L Absolute Neuts (auto) 10.8 Total Counted 100 Neutrophils % 57.2 Neutrophils % (Manual) 62.0 Lymphocytes % 31.3 Lymphocytes % (Manual) 28.0 D Monocytes % 6.9 Monocytes % (Manual) 8 Eosinophils % 3.5 Eosinophils % (Manual) 2.0 Basophils % 1.1 Nucleated RBC % 1 H Hypochromia 1+ Platelet Estimate Increased Platelet Comment No clumping noted Polychromasia 1+ Anisocytosis 1+ Macrocytosis 1+ Ovalocytes 1+ PT with INR 12.10 INR 1.07 PTT (Actin FS) 29.3 Sodium Potassium Chloride Carbon Dioxide Anion Gap BUN Creatinine Creat Clearance w eGFR Random Glucose Calcium Total Bilirubin AST ALT Alkaline Phosphatase Total Protein Albumin Urine Color Ltyellow Urine Appearance Clear Urine pH 6.0 Ur Specific [place] 1.010 Urine Protein Negative Urine Glucose (UA) Negative Urine Ketones Negative Urine Blood Negative Urine Nitrite Negative Urine Bilirubin Negative Urine Urobilinogen Negative Ur Leukocyte Esterase 1+ H Urine WBC (Auto) 1 Urine RBC (Auto) <1 Ur Epithelial Cells Rare RPR Titer Blood Type Antibody Screen 03/16/18 03/16/18 03/17/18 22:10 22:10 02:25 WBC RBC Hgb Hct MCV MCH MCHC RDW Plt Count MPV Absolute Neuts (auto) Total Counted Neutrophils % Neutrophils % (Manual) Lymphocytes % Lymphocytes % (Manual) Monocytes % Monocytes % (Manual) Eosinophils % Eosinophils % (Manual) Basophils % Nucleated RBC % Hypochromia Platelet Estimate Platelet Comment Polychromasia Anisocytosis Macrocytosis Ovalocytes PT with INR INR PTT (Actin FS) Sodium 143 Potassium 4.0 Chloride 108 H Carbon Dioxide 26 Anion Gap 9 BUN 7 Creatinine 0.5 L Creat Clearance w eGFR > 60 Random Glucose 99 Calcium 8.7 Total Bilirubin 0.6 AST 21 ALT 26 Alkaline Phosphatase 80 Total Protein 7.4 Albumin 4.4 Urine Color Urine Appearance Urine pH Ur Specific [place] Urine Protein Urine Glucose (UA) Urine Ketones Urine Blood Urine Nitrite Urine Bilirubin Urine Urobilinogen Ur Leukocyte Esterase Urine WBC (Auto) Urine RBC (Auto) Ur Epithelial Cells RPR Titer Blood Type O POSITIVE O POSITIVE Antibody Screen Positive H 03/17/18 03/17/18 03/17/18 07:00 07:00 07:00 WBC 15.4 H RBC 3.92 Hgb 11.0 Hct 30.7 L D MCV 78.3 L MCH 28.0 MCHC 35.8 RDW 14.8 Plt Count 502 H MPV 6.8 L Absolute Neuts (auto) Total Counted Neutrophils % Neutrophils % (Manual) Lymphocytes % Lymphocytes % (Manual) Monocytes % Monocytes % (Manual) Eosinophils % Eosinophils % (Manual) Basophils % Nucleated RBC % Hypochromia Platelet Estimate Platelet Comment Polychromasia Anisocytosis Macrocytosis Ovalocytes PT with INR INR PTT (Actin FS) Sodium 143 Potassium 3.9 Chloride 110 H Carbon Dioxide 24 Anion Gap 9 BUN 7 Creatinine 0.4 L Creat Clearance w eGFR > 60 Random Glucose 99 Calcium 7.8 L Total Bilirubin AST ALT Alkaline Phosphatase Total Protein Albumin Urine Color Urine Appearance Urine pH Ur Specific [place] Urine Protein Urine Glucose (UA) Urine Ketones Urine Blood Urine Nitrite Urine Bilirubin Urine Urobilinogen Ur Leukocyte Esterase Urine WBC (Auto) Urine RBC (Auto) Ur Epithelial Cells RPR Titer Nonreactive Blood Type Antibody Screen Active Medications Generic Name Dose Route Start Last Admin Trade Name Freq PRN Reason Stop Dose Admin Albuterol Sulfate 2 puff 03/17/18 01:05 Ventolin Hfa Inhaler - IH Q4H PRN SHORT OF BREATH/WHEEZING Gabapentin 600 mg 03/17/18 14:00 03/17/18 14:12 Neurontin - PO 600 mg TID KRUPA Administration Heparin Sodium (Porcine) 5,000 unit 03/17/18 02:00 03/17/18 09:52 Heparin - SQ 5,000 unit Q8H-IV KRUPA Administration Piperacillin Sod/Tazobactam 50 mls @ 100 mls/hr 03/17/18 15:00 03/17/18 14:13 Sod 3.375 gm/ Dextrose IVPB 100 mls/hr Q6H-IV KRUPA Administration Protocol Vancomycin HCl 1 gm in 200 mls @ 166.667 mls/hr 03/17/18 13:00 03/17/18 12:23 Vancomycin 1 Gm Premix - IVPB 166.667 mls/hr BID@0100,1300 KRUPA Administration Protocol Tramadol HCl 50 mg 03/17/18 10:44 03/17/18 11:07 Ultram - PO 50 mg Q6H PRN Administration PAIN LEVEL 6-10 IMAGING: CT L arm shows enlarged lymph nodes around the medial aspect of elbow L doppler u/s: No acute DVT. ASSESSMENT/PLAN: 32 year old female with a hx of sickle cell disease, asthma, depression, BOLA presented for L arm pain and found to have lymphangitis of L forearm and hand #Cellulitis of L forearm/hand: Pt has a draining lesion on the palm of her L hand and erythematous track milton on anterior forearm. -Per ID: cont Vanco 1 gm in 200cc @ 166.67cc/hr and Zosyn 50cc @ 100cc/hr -L hand: Gram stain neg, wound cx pending -blood cx pending -f/u RPR -cont Gabapentin 600 mg PO TID and Tramadol 50 mg Q6H for pain #Asthma: chronic, may have mild symptomatic presentation -albuterol 1-2 puffs as needed #Depression: patient states that she is on wellbutrin and effexor, unknown dose -will confirm with pharmacy and restart #Sickle Cell Disease: chronic, s/p splenectomy -not on maintenance medications #FEN IV NS @ 100cc/hr lytes wnl regular diet #Prophylaxis -heparin 5000 subq tid #Disposition -admit med surg, possible d/c tomorrow -needs med rec Visit type - Emergency Visit Emergency Visit: Yes ED Registration Date: 03/17/18 Care time: The patient presented to the Emergency Department on the above date and was hospitalized for further evaluation of their emergent condition. - New Patient This patient is new to me today: Yes Date on this admission: 03/17/18 - Critical Care Critical Care patient: No
[2018-03-17] MEDS ORDERED: diphenhydrAMINE HCL 25 MG CAPSULE (FP) PO ONE (23:45)
[2018-03-18] MEDS: VANCOMYCIN 1 GM PREMIX - 1 GM/200 ML BAG IVPB SCH ×2 (00:01→14:05)
[2018-03-18] MEDS ORDERED: PIPERACILLIN/TAZOBACTAM 3.375 GM VIAL IVPB ONE ×2 (02:40→10:32)
[2018-03-18] MEDS ORDERED: DEXTROSE 5%-WATER - 50 ML IVPB ONE ×3 (02:40→17:56)
[2018-03-18] MEDS: PIPERACILLIN/TAZOB 3.375 GM 3.375 GM in DEXTROSE 5%-WATER - 50 ML IVPB SCH ×2 (02:47→10:39)
[2018-03-18] MEDS: HEPARIN NA (PORCINE) 5,000 UNITS/ML 1ML VIAL SQ SCH ×3 (02:48→18:02)
[2018-03-18] MEDS: GABAPENTIN 300 MG CAPSULE (FP) PO SCH ×2 (06:50→14:06)
[2018-03-18 07:50] LABS: HEMATOCRIT 33.4 % (32.4-45.2); HEMOGLOBIN 12.1 GM/dL (10.7-15.3); MCH 29.4 pg (25.7-33.7); MCHC 36.1 g/dl (32.0-36.0); MEAN CELL VOLUME 81.6 fl (80-96); MEAN PLT VOLUME 7.3 fl (7.5-11.1); PLATELET COUNT 461 K/MM3 (134-434); RDW 14.8 % (11.6-15.6)
[2018-03-18 08:05] LABS: CHLORIDE 107 mmol/L (98-107); POTASSIUM 4.1 mmol/L (3.5-5.1); SODIUM 141 mmol/L (136-145)
[2018-03-18 08:11] LABS: ANION GAP 8 (8-16); BLOOD UREA NITROGEN 11 mg/dL (7-18); CALCIUM 8.5 mg/dL (8.5-10.1); CO2 26 mmol/L (21-32); CREATININE 0.5 mg/dL (0.55-1.02); GLUCOSE,RANDOM 88 mg/dL (74-106)
--- NOTE | 2018-03-18 11:18 | PN ---
Progress Note (short form) - Note Progress Note: much improved smiling using her right arm freely Vital Signs Period Temp Pulse Resp BP Sys/Manning Pulse Ox Last 24 Hr 98.4 F-98.6 F 62-70 -18 102-120/60-75 98 cor-rrr lungs clear abd soft,nt ext no edema dry rash hands and feet CBC, BMP 03/18/18 06:30 03/18/18 06:30 Microbiology 03/16/18 22:10 Blood - Peripheral Venous Blood Culture - Preliminary NO GROWTH OBTAINED AFTER 24 HOURS, INCUBATION TO CONTINUE FOR 4 DAYS. 03/16/18 22:10 Blood - Peripheral Venous Blood Culture - Preliminary NO GROWTH OBTAINED AFTER 24 HOURS, INCUBATION TO CONTINUE FOR 4 DAYS. 03/17/18 07:30 Hand - Left Gram Stain - Final culture from 03/16 of hand staph aureus sensi pending a/p celluliitis of the forearm/hand resolving d/c zosyn will review cultures and hopefully switch to po antiiboitics soon history of SS disease excema s/p splenectomy reports chronic leukocytosis Problem List - Problems (1) Cellulitis Code(s): L03.90 - CELLULITIS, UNSPECIFIED (2) Chronic eczema Code(s): L30.9 - DERMATITIS, UNSPECIFIED (3) Sickle cell anemia Code(s): D57.1 - SICKLE-CELL DISEASE WITHOUT CRISIS (4) H/O splenectomy Code(s): Z90.81 - ACQUIRED ABSENCE OF SPLEEN
--- NOTE | 2018-03-18 12:24 | PN ---
Physical Exam: SUBJECTIVE: Patient seen and examined at bedside. no new complaints. pain controlled. OBJECTIVE: Vital Signs Temperature 98.4 F 03/18/18 06:00 Pulse Rate 70 03/18/18 06:00 Respiratory Rate 18 03/18/18 06:00 Blood Pressure 102/61 03/18/18 06:00 O2 Sat by Pulse Oximetry (%) 98 03/17/18 21:00 GENERAL: The patient is awake, alert, and fully oriented, in no acute distress. NECK: Trachea midline, full range of motion, supple. LUNGS: Breath sounds equal, clear to auscultation bilaterally, no wheezes, no crackles, no accessory muscle use. HEART: Regular rate and rhythm, S1, S2 without murmur, rub or gallop. ABDOMEN: Soft, nontender, nondistended, normoactive bowel sounds, no guarding, no rebound, no hepatosplenomegaly, no masses. EXTREMITIES: 2+ pulses, warm, well-perfused, no edema. NEUROLOGICAL: Cranial nerves II through X grossly intact. Normal speech, gait not observed. SKIN: Warm, dry, normal turgor, dry, erythematous rash noted on b/l hands and feet. CBC, BMP 03/18/18 06:30 03/18/18 06:30 Active Medications Generic Name Dose Route Start Last Admin Trade Name Freq PRN Reason Stop Dose Admin Albuterol Sulfate 2 puff 03/17/18 01:05 Ventolin Hfa Inhaler - IH Q4H PRN SHORT OF BREATH/WHEEZING Gabapentin 600 mg 03/17/18 14:00 03/18/18 06:50 Neurontin - PO 600 mg TID KRUPA Administration Heparin Sodium (Porcine) 5,000 unit 03/17/18 02:00 03/18/18 10:40 Heparin - SQ 5,000 unit Q8H-IV KRUPA Administration Vancomycin HCl 1 gm in 200 mls @ 166.667 mls/hr 03/17/18 13:00 03/18/18 00:01 Vancomycin 1 Gm Premix - IVPB 166.667 mls/hr BID@0100,1300 KRUPA Administration Protocol Tramadol HCl 50 mg 03/17/18 10:44 03/17/18 11:07 Ultram - PO 50 mg Q6H PRN Administration PAIN LEVEL 6-10 ASSESSMENT/PLAN: The patient is a 32 yo f w/ PMH sickle cell disease, asthma, depression, BOLA who is admitted for L arm pain and cellulitis. #Cellulitis of L forearm/hand -Per ID: Vanc 1g BID; possible switch to PO once cx back -f/u RPR -cont Gabapentin 600 mg PO TID and Tramadol 50 mg Q6H for pain -patient describes sharp, shooting pain down arm w/ neck tenderness -will obtain MRI Cspine #Asthma: controlled -c/w nebs PRN #Depression: -will restart psych meds once reconciled. #Sickle Cell Disease: not in crisis #FEN -NS @ 100cc/hr -lytes wnl -regular diet #Prophylaxis -heparin 5k units TID #Disposition -admit med surg Visit type - Emergency Visit Emergency Visit: Yes ED Registration Date: 03/17/18 Care time: The patient presented to the Emergency Department on the above date and was hospitalized for further evaluation of their emergent condition. - New Patient This patient is new to me today: No - Critical Care Critical Care patient: No
[2018-03-18] MEDS ORDERED: MINERAL OIL/PET HY-PHL TOPICAL OINTMENT 454 GM JAR TP SCH (12:45)
[2018-03-18] MEDS ORDERED: PT OWN MED DRAWER 7, Y5N ONE (13:58)
--- NOTE | 2018-03-18 15:42 | PN ---
Teaching Attending Note Name of Resident: Celso Figueroa ATTENDING PHYSICIAN STATEMENT I saw and evaluated the patient. I reviewed the resident's note and discussed the case with the resident. I agree with the resident's findings and plan as documented. SUBJECTIVE: Patient reports improvement if left arm pain. OBJECTIVE: Vital Signs Period Temp Pulse Resp BP Sys/Manning Pulse Ox Last 24 Hr 98.3 F-98.6 F 62-93 18-18 102-123/60-76 98 HEART: S1S2, RRR LUNGS: Clear ABDOMEN: Soft, non-tender, non-distended, normal BS EXTREMITIES: No edema. Papular and pustular rash on both hands and feet. Decreased erythema of left hand and forearm Laboratory Results - last 24 hr 03/18/18 03/18/18 03/18/18 06:30 06:30 06:30 WBC 15.0 H RBC 4.10 Hgb 12.1 Hct 33.4 MCV 81.6 MCH 29.4 MCHC 36.1 H RDW 14.8 Plt Count 461 H MPV 7.3 L Sodium 141 Potassium 4.1 Chloride 107 Carbon Dioxide 26 Anion Gap 8 BUN 11 Creatinine 0.5 L Creat Clearance w eGFR > 60 Random Glucose 88 Calcium 8.5 RPR Titer Cancelled Current Medications Generic Name Dose Route Start Last Admin Trade Name Freq PRN Reason Stop Dose Admin Albuterol Sulfate 2 puff 03/17/18 01:05 Ventolin Hfa Inhaler - IH Q4H PRN SHORT OF BREATH/WHEEZING Emollient Ointment 1 applic 03/18/18 12:45 03/18/18 14:04 Aquaphor - TP 1 units BID KRUPA Administration Gabapentin 600 mg 03/17/18 14:00 03/18/18 14:06 Neurontin - PO 600 mg TID KRUPA Administration Heparin Sodium (Porcine) 5,000 unit 03/17/18 02:00 03/18/18 10:40 Heparin - SQ 5,000 unit Q8H-IV KRUPA Administration Cefazolin Sodium 1 gm/ 50 mls @ 100 mls/hr 03/18/18 18:00 Dextrose IVPB Q8H-IV KRUPA Tramadol HCl 50 mg 03/17/18 10:44 03/17/18 11:07 Ultram - PO 50 mg Q6H PRN Administration PAIN LEVEL 6-10 ASSESSMENT AND PLAN: This is a 32 year old woman with a history of sickle cell disease, asthma, depression, BOLA who presented to the ED with left arm pain. 1. Left hand/forearm cellulitis - Improving - WBC improving - Wound culture growing Staph latex - Blood cultures negative - Antibiotics changed to Ancef 2. Eczematous dermatitis of hands and feet - Apply Aquaphor ointment 3. Left shoulder/arm pain - Continue Neurontin, Ultram as needed - Venous doppler shows no evidence of DVT - Arterial doppler shows patent arteries - MRI of C-spine shows mild reversal of normal cervical lordosis and thickening of left ligamentum flavum at T3-T4 4. Asthma - Stable 5. Depression 6. Sickle cell disease - Stable
[2018-03-18 17:08] VITALS: BP 118/66; PULSE 78; TEMP 98.6
[2018-03-18] MEDS ORDERED: ceFAZolin SODIUM 1 GM VIAL ONE (17:55)
[2018-03-18] MEDS ORDERED: CEFAZOLIN 1 GM in DEXTROSE 5%-WATER - 50 ML IVPB SCH (18:00)
--- NOTE | 2018-03-18 23:03 | DS ---
Physical Exam: SUBJECTIVE: Patient seen and examined at bedside. No new complaints OBJECTIVE: Vital Signs Period Temp Pulse Resp BP Sys/Manning Pulse Ox Last 24 Hr 98.2 F-98.6 F 70-93 18-20 102-123/61-76 94 PHYSICAL EXAM GENERAL: The patient is awake, alert, and fully oriented, in no acute distress. HEAD: Normal with no signs of trauma. NECK: Trachea midline, full range of motion, supple. LUNGS: Breath sounds equal, clear to auscultation bilaterally, no wheezes, no crackles, no accessory muscle use. HEART: Regular rate and rhythm, S1, S2 without murmur, rub or gallop. ABDOMEN: Soft, nontender, nondistended, normoactive bowel sounds, no guarding, no rebound, no hepatosplenomegaly, no masses. EXTREMITIES: 2+ pulses, warm, well-perfused, no edema. NEUROLOGICAL: Cranial nerves II through X grossly intact. Normal speech, gait not observed. SKIN: Warm, dry, normal turgor, rash is improved today. LABS Laboratory Results - last 24 hr 03/18/18 03/18/18 03/18/18 06:30 06:30 06:30 WBC 15.0 H RBC 4.10 Hgb 12.1 Hct 33.4 MCV 81.6 MCH 29.4 MCHC 36.1 H RDW 14.8 Plt Count 461 H MPV 7.3 L Sodium 141 Potassium 4.1 Chloride 107 Carbon Dioxide 26 Anion Gap 8 BUN 11 Creatinine 0.5 L Creat Clearance w eGFR > 60 Random Glucose 88 Calcium 8.5 RPR Titer Cancelled HOSPITAL COURSE: Date of Admission:03/17/18 The patient is a 32 year old female w/ PMHx of sickle cell disease, asthma presented for 1 day hx of L arm pain. In the ED, she was found to have an eczematous rash accompanied by erythema and erythematous tracking proximally. Upper extremity Doppler was negative for DVT. A CT of the upper extremity showed reactive adenopathy and no fluid collection. The patient was admitted for the treatment of lymphangitis. Infectious disease was consulted. The patient was treated with Vancomycin and Zosyn. She was found to have point tenderness along her cervical spine. an MRI of the cervical spine showed no stenosis. Her pain was controlled with morphine , tramadol and gabapentin. The patient improved on the above treatment and was discharged home on Keflex 500mg q6h for an additional 5 days. Date of Discharge: 03/18/18 Minutes to complete discharge: 35 Discharge Summary Reason For Visit: COMMUNITY ACQUIRED PNA SICKLE CELL Condition: Improved - Instructions Diet, Activity, Other Instructions: You were admitted for the treatment of your arm pain and skin infection. Your rash has been treated with antibiotics and an MRI of your spine did not show any pinched nerves. You should continue to take your home medications as prescribed. We are sending you home with a new medication to help fight your infection. You should take Keflex 500mg every 8 hours for an additional 5 days. You should follow up with your primary care physician within one week of discharge home. If you begin to experience worsening pain, weakness, chest pain, shortness of breath or if any of your symptoms get worse, please call your doctor or return to the emergency department. Referrals: Ashley Reddy MD [Primary Care Provider] - Disposition: HOME - Home Medications Comprehensive Discharge Medication List: Ambulatory Orders Albuterol Sulfate Inhaler - [Ventolin HFA Inhaler -] 2 inh PO Q4H PRN #1 inh Betamethasone Dipropionate 15 gm TP BID 03/18/18 Bupropion HCl [Wellbutrin Sr] 150 mg PO DAILY 03/18/18 Cephalexin [Keflex] 500 mg PO Q6H #120 capsule 03/18/18 Olopatadine HCl 2.5 ml OP BID 03/18/18 Oxycodone HCl/Acetaminophen [Oxycodone-Acetaminophen 5-325] 2 each PO Q6H PRN MDD 8 03/18/18 Selenium Sulfide [Selsun 2.5% Lotion -] 1 applic TP DAILY 03/18/18 Sumatriptan Succinate [Imitrex -] 25 mg PO BID MDD 2 03/18/18 Topiramate 25 mg PO DAILY 03/18/18 Venlafaxine HCl ER [Effexor Xr -] 37.5 mg PO DAILY 03/18/18 This patient is new to me today: No Emergency Visit: Yes ED Registration Date: 03/17/18 Care time: The patient presented to the Emergency Department on the above date and was hospitalized for further evaluation of their emergent condition. Critical Care patient: No - Discharge Referral Referred to [facility] Med P.C[facility] No
== END 2018-03-18 19:21 | disposition home or self-care (01) | DRG 383 ==
LOC: JER 19:49 → JERBED 03-17 01:32 → UNDOADMIN 03-17 02:23 → J8W 03-17 04:36
PROVIDERS: ADMIT Internal Medicine; ATTEND Internal Medicine
DX: L03.114 Cellulitis of left upper limb (principal); J18.9 Pneumonia, unspecified organism; L30.8 Other specified dermatitis; M25.512 Pain in left shoulder; J45.20 Mild intermittent asthma, uncomplicated; M79.602 Pain in left arm; F32.9 Major depressive disorder, single episode, unspecified; G47.33 Obstructive sleep apnea (adult) (pediatric); F17.210 Nicotine dependence, cigarettes, uncomplicated; R59.1 Generalized enlarged lymph nodes; D57.1 Sickle-cell disease without crisis; Z90.81 Acquired absence of spleen; B95.61 Methicillin susceptible Staphylococcus aureus infection as the cause of diseases classified elsewhere
CPT/HCPCS: 36415; 72141-TC; 73201-TC-RT; 80048; 80053; 81003; 81015; 85025; 85027; 85610; 85730; 86593; 86850; 86870; 86900; 86901; 86902; 87040; 87070; 87205; 87491; 87591; 93931; 93971; 99281-25; J1644; J7030

== ENCOUNTER 2018-07-26 05:21 | Day surgery (SDC) | payer OTHER ==
[2018-07-24 15:13] VITALS: BMI 28.0
[2018-07-26] MEDS ORDERED: IBUPROFEN 800 MG/8 ML IJ IVPB PRN (10:22)
--- NOTE | 2018-07-26 10:22 | HP ---
History & Physical Update - History History: No Change - Physical Physical: No Change - Assessment Assessment: No Change - Plan Plan: No Change (AUB and abnormal pap smear, for D&C and LEEP)
[2018-07-26] MEDS ORDERED: LACTATED RINGERS SOLUTION 1,000 ML IV SCH (10:30)
[2018-07-26] MEDS ORDERED: PROPOFOL 20 ML ONE ×5 (10:33→10:49)
[2018-07-26] MEDS ORDERED: KETOROLAC TROMETHAMINE 30 MG/1 ML VIAL ONE (11:05)
[2018-07-26] MEDS ORDERED: DEXAMETHASONE SOD PHOSPHATE 4 MG/1 ML VIAL ONE ×2 (11:13→11:14)
[2018-07-26] MEDS ORDERED: ALBUTEROL SO4 0.083% IH SOL 2.5 MG/3 ML VIAL.NEB. NEB ONE (11:31)
[2018-07-26] MEDS ORDERED: ONDANSETRON 4 MG/2 ML VIAL IVPUSH PRN (11:42)
[2018-07-26] MEDS ORDERED: ACETAMINOPHEN 325 MG TABLET (FP) PO PRN (11:42)
[2018-07-26] MEDS ORDERED: ALBUTEROL SO4 8 GM HFA INHALER IH PRN (11:49)
--- NOTE | 2018-07-26 11:55 | OP ---
Operative Note - Note: Operative Date: 07/26/18 ([id number]) Pre-Operative Diagnosis: abnormal uterine bleeding, cervical dysplasia, right vulvar lesion Operation: hysteroscopy, D&C with suction, excision of right vulvar lesion Findings: polypoid tissue on the posterior aspect of the uterus normal cervix right vulvar lesion Surgeon: Yenny Traore Anesthesiologist/LEAD CARE MANAGER: Rodney Wilson Anesthesia: General (wtih LMA) Specimens Removed: endometrial curettings, anterior and posterior portions of cervix, right vulvar lesion Estimated Blood Loss (mls): 5 Operative Report Dictated: Yes
[2018-07-26] MEDS ORDERED: oxyCODONE HCL 5 MG TABLET PO PRN (12:48)
[2018-07-26] MEDS ORDERED: ALBUTEROL SO4 0.083% IH SOL 2.5 MG/3 ML VIAL.NEB. NEB PRN (12:49)
[2018-07-26 13:29] VITALS: PULSE 84
[2018-07-26 15:28] VITALS: BP 110/64; TEMP 98
[2018-07-26] MEDS ORDERED: PATIENT'S OWN MEDICATION (NON-FORMULARY) (Beclomethasone Dipropionate [Qvar] 8.7 GM) IH SCH (22:00)
--- NOTE | 2018-07-26 23:40 | OP ---
DATE OF OPERATION: 07/26/2018 PREOPERATIVE DIAGNOSIS: Abnormal uterine bleeding, cervical dysplasia, right vulvar lesion. POSTOPERATIVE DIAGNOSIS: Abnormal uterine bleeding, cervical dysplasia, right vulvar lesion. PROCEDURE: Hysteroscopy, suction dilation and curettage, loop electrosurgical excision procedure cone biopsy, and right vulvar lesion excision. SURGEON: Yenny Traore D.O. ANESTHESIA: LMA ANESTHESIOLOGIST: Rodney Wilson D.O. ESTIMATED BLOOD LOSS: 5 mL. COMPLICATIONS: None. SPECIMENS: Include anterior and posterior portions of cervix, endometrial curettings and right vulvar lesion. DISPOSITION: Stable to PACU. COUNTS: Sponge, needle, instrument counts correct. BRIEF HISTORY AND PROCEDURE: Patient is a 33-year-old female with a known medical history of asthma and sickle cell trait, hemoglobin SC disease, who was seen in the office, has a known longstanding history of abnormal Pap smears and heavy, painful periods. Patient went to undergo a diagnostic hysteroscopy D and C and LEEP procedure. The patient also complained of a right vulvar lesion. She requested excision. The consent for procedure was signed on the office on July 24, 2018, which she reconfirmed upon the admission on July 26, 2018. The patient was taken back to the operating room and placed in the dorsal lithotomy position, given anesthesia with LMA by Dr. Rodney Wilson. A hard timeout was then performed. She was prepped and draped in the usual sterile fashion. A coated speculum was placed inside the vagina, and the anterior lip of the cervix was grasped with a tenaculum, and the cervix was dilated to accommodate the diagnostic hysteroscope. It was advanced to the fundus of the uterus. Bilateral tubal ostium were noted. Some polypoid tissue in the posterior aspect of the uterus was appreciated, and sharp curettage and suction curettage was completed. Specimens sent to pathology for permanent evaluation. One final look with the hysteroscope revealed no evidence of uterine perforation and polypoid tissue had been removed in its entirety. Next attention was turned to the cervix, using a LEEP loop, the specimen was removed in 2 separate passes anterior and posterior cervix, this was done without difficulty and the specimen was sent to pathology for permanent evaluation. Rollerball cautery was used to achieve hemostasis at the surgical site, and Monsel solution was applied. Attention was then turned to the right vulva where an approximately 3-mm lesion was appreciated. It was incised in its entirety and a 3-0 Vicryl suture was used to reapproximate the skin edges and achieve hemostasis and a Band-Aid was applied. All instruments were removed from the surgical site. Sponge, needle, instrument counts were reported correct. The patient tolerated procedure well, was accompanied in stable condition to the PACU at the time of this dictation. YENNY TRAORE DO /[id number]
--- NOTE | 2018-08-02 17:00 | PATH ---
Surgical Pathology Report Patient Name: CIARAN LYONS [facility]. Rec. #: [id number] /Age/Gender: 1985 (Age: 33) / F Account: [id number] Location: [facility] SURGICAL Taken: 07/26/2018 Received: 07/26/2018 Reported: 08/02/2018 Physicians: Yenny Traore M.D. Specimen(s) Received A: VULVAR LESION- RIGHT B: ANTERIOR PORTION OF CERVIX C: POSTERIOR PORTION OF CERVIX D: ENDOMETRIAL CURETTINGS Clinical History HPV Final Diagnosis A. VULVAR LESION, RIGHT, EXCISION: CONSISTENT WITH SEBORRHEIC KERATOSIS. SEE COMMENT. B. ANTERIOR PORTION CERVIX, LOOP ELECTROSURGICAL EXCISION PROCEDURE (LEEP): CERVICAL SQUAMOUS AND ENDOCERVICAL MUCOSA WITH FOCAL LOW GRADE SQUAMOUS INTRAEPITHELIAL LESION (CERVICAL INTRAEPITHELIAL NEOPLASIA 1/ CHANTE 1). SURGICAL MARGINS: NEGATIVE FOR HIGH GRADE DYSPLASIA. TRANSFORMATION ZONE: PRESENT. SEE COMMENT. C. POSTERIOR PORTION CERVIX, LOOP ELECTROSURGICAL EXCISION PROCEDURE (LEEP): DETACHED AND CAUTERIZED FRAGMENT WITH HIGH GRADE SQUAMOUS INTRAEPITHELIAL LESION (CERVICAL INTRAEPITHELIAL NEOPLASIA 2/ CHANTE 2) CERVICAL SQUAMOUS AND ENDOCERVICAL MUCOSA WITH LOW GRADE SQUAMOUS INTRAEPITHELIAL LESION. SURGICAL RESECTION MARGINS: CANNOT BE ADEQUATELY ASSESSED DUE FRAGMENTED/CAUTERIZED NATURE OF THE SPECIMEN. TRANSFORMATION ZONE: PRESENT. SEE COMMENT. D. EMC, DILATION AND CURETTAGE: SECRETORY ENDOMETRIUM AND BENIGN ENDOCERVICAL MUCOSA. SEE COMMENT. Comment: Part A, Immunohistochemical stain performed at [place], [place] ([id number]) and interpreted at [facility] for HPV (subtypes 6/11) are negative. In part C, P16 is strongly and diffusely positive in HSIL. Immunohistochemical stains performed at [facility], [place], [place] ([id number]) and interpreted at [facility] in parts B,C,D for p16 and Ki-67 utilized to evaluate this case. Electronically Signed Jana Haney M.D. Gross Description A. Received in formalin labeled "vulvar lesion," is a 0.7 x 0.5 cm brown skin shave. The base is inked blue and the specimen is bisected and entirely submitted in one cassette. B. Received in formalin labeled "anterior portion of cervix," is a 1.7 x 0.6 x 0.5 cm unoriented portion of soft tissue, consistent with a portion of cervix. The specimen is partially surfaced by a winkler-pink mucosa. The specimen is inked blue, serially sectioned and entirely submitted in one cassette. C. Received in formalin labeled "posterior portion of cervix," is a 1.1 x 0.7 x 0.3 cm unoriented portion of soft tissue, consistent with a portion of cervix. The specimen is partially surfaced by a winkler-pink mucosa. The specimen is inked blue, serially sectioned and entirely submitted in one cassette. D. Received in formalin labeled "EMC," is a 2.5 x 2.3 x 0.3 cm aggregate of winkler soft tissue fragments. The formalin is filtered and the specimen is entirely submitted in one cassette. 07/26/2018 [facility]07/26/2018
== END 2018-07-26 14:20 | disposition home or self-care (01) ==
LOC: JASU-SURG 05:21
PROVIDERS: ATTEND Obstetrics & Gynecology
PROC: 0UBM0ZX Excision of Vulva, Open Approach, Diagnostic (ICD-10-PCS; 2018-07-26)
PROC: 0UDB8ZX Extraction of Endometrium, Via Natural or Artificial Opening Endoscopic, Diagnostic (ICD-10-PCS; principal; 2018-07-26 10:00)
PROC: 0UBC8ZX Excision of Cervix, Via Natural or Artificial Opening Endoscopic, Diagnostic (ICD-10-PCS; 2018-07-26 10:00)
PROC: 0UDB8ZX Extraction of Endometrium, Via Natural or Artificial Opening Endoscopic, Diagnostic (ICD-10-PCS; 2018-07-26 10:00)
DX: N93.9 Abnormal uterine and vaginal bleeding, unspecified (principal); N87.9 Dysplasia of cervix uteri, unspecified; N90.89 Other specified noninflammatory disorders of vulva and perineum
CPT/HCPCS: 86850; 86870; 86900; 86901; 86902; 88305-TC; 94760